=== PATIENT | female | born 1950 | race Caucasian/White ===

== ENCOUNTER 2017-04-25 07:29 | Emergency (ER) | payer BC ==
[2017-04-25 07:41] VITALS: BP 144/83; PULSE 105; TEMP 98.8; BMI 22.4
--- NOTE | 2017-04-25 08:18 | PDOC ---
History of Present Illness - General Chief Complaint: Injury Stated Complaint: R TOE PAIN Time Seen by Provider: 04/25/17 07:53 - History of Present Illness Initial Comments: 04/25/17 08:10 The patient is a 66 year old female who denies any PMH who presents for evaluation of right 1st toe pain. The patient reports that she dropped a porcelain pot on her toe 4 days ago. Since that time, she reports pain in her 1st toe with associated difficulty walking that has not improved prompting her presentation to the ED today. She denies any loss of sensation, weakness, or other injuries. She denies fevers, chills, SOB, chest pain, abdominal pain, or changes with urination or bowel movements. Past History - Past Medical History Allergies/Adverse Reactions: Allergies Allergy/AdvReac Type Severity Reaction Status Date / Time Sulfa (Sulfonamide Allergy Rash Verified 04/25/17 07:36 Antibiotics) Home Medications: Ambulatory Orders NK [No Known Home Medication] 04/25/17 Cancer: Yes (rt breast) COPD: No - Suicide/Smoking/Psychosocial Hx Smoking History: Never smoked Review of Systems - Review of Systems Comments:: 04/25/17 08:14 Constitutional: No fevers, chills, fatigue, malaise HEENT: No Rhinorrhea, nasal congestion, Cardiovascular: No chest pain, syncope, palpitations, lightheadedness Respiratory: No Cough, SOB, Hemoptysis, Gastrointestinal: No Abdominal pain, Nausea, Vomiting, Constipation, Diarrhea, Melena Genitourinary: No Dysuria, Frequency, Urgency, Hesitancy, Hematuria, Flank pain Musculoskeletal: Right 1st toe pain. No Myalgia, arthralgia Skin: Right 1st toe Bruising, No rashes, pallor Neurologic: No Headache, Dizziness, Numbness, Weakness, or Tingling Psychiatric: No Hallucinations. No SI or HI *Physical Exam - Vital Signs Last Vital Signs Temp Pulse Resp BP Pulse Ox 98.8 F 105 H 19 144/83 99 04/25/17 07:36 04/25/17 07:36 04/25/17 07:36 04/25/17 07:36 04/25/17 07:36 - Physical Exam Comments: 04/25/17 08:15 General Appearance: Nourished. No Apparent Distress HEENT: EOMI, NAY. Neck: No Cervical Lymphadenopathy Respiratory/Chest: Lungs Clear, Normal Breath Sounds. No Crackles, Rales, Rhonchi, Wheezing Cardiovascular: Regular Rhythm, Regular Rate. No Murmur, Gallops, Rubs Gastrointestinal/Abdominal: Normal Bowel Sounds, Soft. No Guarding, Rebound, Tenderness Musculoskeletal: No CVA Tenderness Extremity: Tenderness to palpation of the distal right 1st toe with some notable bruising. Sensation to light touch and temperature intact. Normal range of motion. Normal Capillary Refill Integumentary: Normal Color, Dry, Warm Neurologic: Fully Oriented, Alert, Normal Mood/Affect, Normal Response, Motor Strength 5/5. Procedures - Incision and Drainage I&D Site: Right: Paronychia (1st toe) Blade Size: 11 Attempts: 1 Plain Packing: No Complications: none Dressing: Yes ED Treatment Course - RADIOLOGY Radiology Studies Ordered: Category Date Time Status FOOT-RIGHT [RAD] Stat Radiology 04/25/17 08:01 Ordered Medical Decision Making - Medical Decision Making 04/25/17 08:19 The patient is a 66 year old female who denies any PMH who presents for evaluation of right 1st toe pain. Differential includes but is not limited to: Fracture, contusion, ligamentous injury, musculoskeletal injury. Given the patient's physical exam, we are concerned for fracture in the distal 1st toe. We will obtain plain films to evaluate further. We will continue to monitor and reassess. 04/25/17 10:06 Plain film demonstrates a non-displaced fracture of the right distal 1st palanax as read by our radiologist. We jose guadalupe taped the patient's toe and placed her in a hard sole slipper. We also performed a Paronychia drainage here in the ED. We discussed return precautions with the patient as well as the need to follow up with orthopedic surgery or podietry for further management. We are comfortable discharging the patient home at this time. The patient voiced understanding and is agreeable with the plan. *DC/Admit/Observation/Transfer Diagnosis at time of Disposition: Toe fracture, right Qualifiers: Encounter type: initial encounter Toe: great toe Fracture type: closed Phalanx : distal Fracture alignment: nondisplaced Qualified Code(s): S92.424A - Nondisplaced fracture of distal phalanx of right great toe, initial encounter for closed fracture - Discharge Dispostion Disposition: HOME Condition at time of disposition: Good Admit: No - Referrals Referrals: John Oliva [Primary Care Provider] - Grayson Theodore MD [Staff Physician] - Leonila Dubon MD [Staff Physician] - - Patient Instructions Printed Discharge Instructions: DI for Toe Fracture Additional Instructions: Please return to the ER if you experience concerning or worsening symptoms including fevers, chills, worsening pus drainage or pain to the wound. You were seen in the ER for a right toe injury. Your x-rays demonstrated a fracture of your right large toe. You also had a small bacterial pocket drained here in the ER. Please continue to us warm compresses and salt water baths to help manage your symptoms. Please continue to wear the hard sole slipper that we have provided you. We have provided numbers to contact for follow up. Please contact Dr. Theodore ( orthopedic surgeon) or Leonila Dubon (podietry) to be evaluated within 1 week and discuss further management. You may use tylenol or ibuprofen at home to help manage your pain.
--- NOTE | 2017-04-25 08:39 | PDOC ---
Attending Attestation - Resident Resident Name: Gold Rowan - ED Attending Attestation I have performed the following: I have examined & evaluated the patient, The case was reviewed & discussed with the resident, I agree w/resident's findings & plan, Exceptions are as noted - HPI HPI: 04/25/17 08:37 Healthy 66-year-old female had a porcelain vase fall onto her right great toe 4 days ago, she presents now for evaluation in the setting of persistent swelling and ecchymosis, but more specifically after noting some yellow lining around the base of her nail, not draining with warm soaks so she presents for evaluation. No fevers or chills, no tracking cellulitis. - Physicial Exam PE: 04/25/17 08:37 Afebrile. Well-appearing. Right foot: Ecchymosis and swelling from the interphalangeal joint and distally , tenderness to palpation without open skin lesions. Neurovascularly intact otherwise. There is hematoma along the paronychia region but there is some hardened possibly purulent material on the medial aspect, no other evidence of cellulitis - Medical Decision Making 04/25/17 08:38 Patient seen and evaluated with the resident. I agree with the overall evaluation, assessment, and management with the following summary of visit: 66-year-old female with right great toe contusion, possible fracture. Subsequent hematoma, question early paronychia without cellulitis. No other skin lesions. Left foot x-ray Pain control Trial of drainage Discharge with wound care instructions and podiatry follow-up as needed 04/25/17 10:02 distal phalanx fracture, jose guadalupe tape with gauze and hard sole shoe. s/p successful I+D of paronychia under my supervision, see resident note.
== END 2017-04-25 10:20 | disposition home or self-care (01) ==
LOC: JER 07:29
PROC: 0J9Q0ZZ Drainage of Right Foot Subcutaneous Tissue and Fascia, Open Approach (ICD-10-PCS; principal; 2017-04-25)
DX: S92.424A Nondisplaced fracture of distal phalanx of right great toe, initial encounter for closed fracture (principal); L03.031 Cellulitis of right toe; W20.8XXA Other cause of strike by thrown, projected or falling object, initial encounter; Y93.89 Activity, other specified; Y92.89 Other specified places as the place of occurrence of the external cause; Y99.8 Other external cause status
CPT/HCPCS: 10060; 73630-TC-RT; 99282-25